=== PATIENT | male | born 1930 | race African-American/Black ===

== ENCOUNTER → 2016-10-02 | Outpatient (CLI) | payer MEDICARE ==
[2015-08-03 15:12] VITALS: BP 169/95
[~2016-10-02] MED LIST: ACET325T9 PO; ALPR1TAB2 PO; AMLO5TAB2 PO; AMOX875T PO; ASCO500T2 PO; FINA5TAB4 PO; HEPA500022 SQ; LISI-334 PO; LISI10TA2 PO; METO25TA4 PO; Megestrol Acetate PO; NAPH1POW2 PO; OXYC1TAB7 PO; Ondansetron Hcl/Pf IV; TAMS0.4C2 PO; TAMS0.4C97 PO; TRAZ50TA15 PO
[2016-10-02 14:21] LABS: CALCIUM 9.1 mg/dL (8.5-10.1); CREATININE 1.3 mg/dL (0.7-1.3); GFR 63.6; POTASSIUM 4.2 mmol/L (3.5-5.1)
== END | disposition home or self-care (01) ==
LOC: LAB 13:55
PROVIDERS: ATTEND Nurse Practitioner Occupational Health
DX: Z12.5 Encounter for screening for malignant neoplasm of prostate (principal)
CPT/HCPCS: 36415; 80048; G0103

== ENCOUNTER → 2016-10-11 | Outpatient (CLI) | payer MEDICARE ==
[2015-08-03 15:12] VITALS: BP 169/95
--- NOTE | 2016-10-11 15:15 | RAD ---
Renal ultrasound, 10/11/2016: History: Enlarged prostate The right kidney measures 9.6 cm in length while the left kidney measures 11.2 cm. There is mild bilateral renal cortical scarring, slightly worse on the right. There is a 1.9 cm cyst arising from the lower pole of the left kidney. A 1.8 cm cystic structure at the left renal hilum is probably a prominent extrarenal pelvis, although a parapelvic cyst is also a possibility. No right renal mass is seen. There is no evidence of hydronephrosis. Limited views of the urinary bladder show it to be mildly distended with a volume of 520 cc. There is a mild impression upon its base due to an enlarged prostate. The bladder is otherwise unremarkable. IMPRESSION: 1. Mild bilateral renal cortical scarring. 2. Small left renal cyst. 3. No evidence of renal obstruction. 4. Prostatic enlargement
== END | disposition home or self-care (01) ==
LOC: US 11:04
PROVIDERS: ATTEND Nurse Practitioner Occupational Health
DX: N28.1 Cyst of kidney, acquired (principal)
CPT/HCPCS: 76770

== ENCOUNTER 2017-07-08 17:19 | Emergency (ER) | payer MEDICARE ==
[2017-07-08] MEDS: oxyCODONE/APAP 5/325 1 TAB TABLET PO (18:00)
[2017-07-08] MEDS: IBUPROFEN 800 MG TABLET. PO (18:00)
== END 2017-07-08 18:50 | disposition home or self-care (01) ==
LOC: ER 17:19
DX: S42.294A Other nondisplaced fracture of upper end of right humerus, initial encounter for closed fracture (principal); I10 Essential (primary) hypertension; W00.0XXA Fall on same level due to ice and snow, initial encounter; Y93.89 Activity, other specified; Y92.89 Other specified places as the place of occurrence of the external cause; Y99.8 Other external cause status
CPT/HCPCS: 29240; 73030; 73070; 99284-25

== ENCOUNTER → 2017-08-16 | Outpatient (CLI) | payer MEDICARE ==
[2017-08-16 14:54] LABS: ANION GAP 12 (6-14); BLOOD UREA NITROGEN 19 mg/dL (8-26); CALCIUM 8.6 mg/dL (8.5-10.1); CARBON DIOXIDE 25 mmol/L (21-32); CHLORIDE 102 mmol/L (98-107); CREATININE 1.3 mg/dL (0.7-1.3); GFR 63.5; GLUCOSE 99 mg/dL (70-99); PHOSPHORUS 2.7 mg/dL (2.6-4.7); POTASSIUM 3.4 mmol/L (3.5-5.1); SODIUM 139 mmol/L (136-145)
== END | disposition home or self-care (01) ==
LOC: LAB 14:03
DX: I12.9 Hypertensive chronic kidney disease with stage 1 through stage 4 chronic kidney disease, or unspecified chronic kidney disease (principal); N18.9 Chronic kidney disease, unspecified; N17.9 Acute kidney failure, unspecified
CPT/HCPCS: 36415; 80069

== ENCOUNTER → 2019-01-26 | Outpatient (CLI) | payer MEDICARE ==
[2017-07-08 17:45] VITALS: BP 159/102
[~2019-01-26] MED LIST changes: +AMLO5TAB10 PO; -AMLO5TAB2 PO; +OXYC1TAB15 PO; +TRAZ-118 PO; -TRAZ50TA15 PO
[2019-01-26 11:04] LABS: BASO % 1 % (0-3); EOS # 0.1 x10^3/uL (0.0-0.7); EOS % 1 % (0-3); HEMATOCRIT 37.8 % (39.0-53.0); HEMOGLOBIN 12.4 g/dL (13.0-17.5); LYMPH # 0.5 x10^3/uL (1.0-4.8); LYMPH % 10 % (24-48); MEAN CORPUSCULAR HEMOGLOBIN 31 pg (25-35); MEAN CORPUSCULAR HGB CONC 33 g/dL (31-37); MEAN CORPUSCULAR VOLUME 94 fL (79-100); MONO # 0.3 x10^3/uL (0.0-1.1); MONO % 6 % (0-9); NEUT # 4.2 x10^3/uL (1.8-7.7); NEUT % 82 % (31-73); PLATELET COUNT 175 x10^3/uL (140-400); RED BLOOD COUNT 4.03 x10^6/uL (4.30-5.70); RED CELL DISTRIBUTION WIDTH 15.3 % (11.5-14.5); WHITE BLOOD COUNT 5.2 x10^3/uL (4.0-11.0)
[2019-01-26 11:13] LABS: ALBUMIN 4.1 g/dL (3.4-5.0); CALCIUM 8.8 mg/dL (8.5-10.1); CREATININE 1.5 mg/dL (0.7-1.3); GFR 53.7; MAGNESIUM 2.1 mg/dL (1.8-2.4); PHOSPHORUS 2.7 mg/dL (2.6-4.7)
[2019-01-26 22:10] LABS: CALCIUM PTH 9.4 mg/dL (8.6-10.2); CREATININE PTH 1.41 mg/dL (0.76-1.27); PHOSPHORUS PTH 2.6 mg/dL (2.5-4.5); PTH INTACT 80 pg/mL (15-65)
== END | disposition home or self-care (01) ==
LOC: LAB 10:45
PROVIDERS: ATTEND Nurse Practitioner Family
DX: I12.9 Hypertensive chronic kidney disease with stage 1 through stage 4 chronic kidney disease, or unspecified chronic kidney disease (principal); N18.2 Chronic kidney disease, stage 2 (mild); N40.0 Benign prostatic hyperplasia without lower urinary tract symptoms; E21.3 Hyperparathyroidism, unspecified; Z79.899 Other long term (current) drug therapy
CPT/HCPCS: 36415; 80069; 82306; 83735; 83970; 85025

== ENCOUNTER → 2020-01-25 | Outpatient (CLI) | payer MEDICARE ==
[2017-07-08 17:45] VITALS: BP 159/102
[~2020-01-25] MED LIST changes: -ASCO500T2 PO; +ASCO500T4 PO
[2020-01-25 12:46] LABS: BASO # 0.1 x10^3/uL (0.0-0.2); BASO % 1 % (0-3); EOS # 0.1 x10^3/uL (0.0-0.7); EOS % 2 % (0-3); HEMATOCRIT 35.5 % (39.0-53.0); HEMOGLOBIN 12.3 g/dL (13.0-17.5); LYMPH # 0.7 x10^3/uL (1.0-4.8); LYMPH % 13 % (24-48); MEAN CORPUSCULAR HEMOGLOBIN 32 pg (25-35); MEAN CORPUSCULAR HGB CONC 35 g/dL (31-37); MEAN CORPUSCULAR VOLUME 92 fL (79-100); MONO # 0.4 x10^3/uL (0.0-1.1); MONO % 7 % (0-9); NEUT # 3.9 x10^3/uL (1.8-7.7); NEUT % 77 % (31-73); PLATELET COUNT 170 x10^3/uL (140-400); RED BLOOD COUNT 3.86 x10^6/uL (4.30-5.70); RED CELL DISTRIBUTION WIDTH 15.2 % (11.5-14.5); WHITE BLOOD COUNT 5.1 x10^3/uL (4.0-11.0)
[2020-01-25 12:57] LABS: CALCIUM 8.7 mg/dL (8.5-10.1); CREATININE 1.5 mg/dL (0.7-1.3); GFR 53.6; PHOSPHORUS 2.7 mg/dL (2.6-4.7); POTASSIUM 3.9 mmol/L (3.5-5.1)
[2020-01-25 23:08] LABS: CALCIUM PTH 9.2 mg/dL (8.6-10.2); CREATININE PTH 1.33 mg/dL (0.76-1.27); PHOSPHORUS PTH 2.5 mg/dL (2.8-4.1); PTH INTACT 53 pg/mL (15-65)
== END | disposition home or self-care (01) ==
LOC: LAB 12:11
PROVIDERS: ATTEND Internal Medicine Nephrology
DX: I12.9 Hypertensive chronic kidney disease with stage 1 through stage 4 chronic kidney disease, or unspecified chronic kidney disease (principal); N18.2 Chronic kidney disease, stage 2 (mild); N40.0 Benign prostatic hyperplasia without lower urinary tract symptoms
CPT/HCPCS: 36415; 80069; 83970; 85025

== ENCOUNTER → 2021-02-27 | Outpatient (CLI) | payer MEDICARE ==
[2017-07-08 17:45] VITALS: BP 159/102
[~2021-02-27] MED LIST changes: +AMLO-186 PO; -AMLO5TAB10 PO; -LISI-334 PO; +LISI10TA16 PO; -LISI10TA2 PO; +LISI20TA18 PO
[2021-02-27 11:48] LABS: BASO # 0.1 x10^3/uL (0.0-0.2); BASO % 1 % (0-3); EOS % 1 % (0-3); HEMATOCRIT 33.9 % (39.0-53.0); HEMOGLOBIN 11.3 g/dL (13.0-17.5); LYMPH # 0.6 x10^3/uL (1.0-4.8); LYMPH % 10 % (24-48); MEAN CORPUSCULAR HEMOGLOBIN 31 pg (25-35); MEAN CORPUSCULAR HGB CONC 33 g/dL (31-37); MEAN CORPUSCULAR VOLUME 93 fL (79-100); MONO # 0.4 x10^3/uL (0.0-1.1); MONO % 7 % (0-9); NEUT # 4.4 x10^3/uL (1.8-7.7); NEUT % 81 % (31-73); PLATELET COUNT 181 x10^3/uL (140-400); RED BLOOD COUNT 3.63 x10^6/uL (4.30-5.70); RED CELL DISTRIBUTION WIDTH 15.7 % (11.5-14.5); WHITE BLOOD COUNT 5.5 x10^3/uL (4.0-11.0)
[2021-02-27 11:53] LABS: ALBUMIN 4.1 g/dL (3.4-5.0); CREATININE 1.6 mg/dL (0.7-1.3); GFR 49.6; PHOSPHORUS 3.3 mg/dL (2.6-4.7); POTASSIUM 5.2 mmol/L (3.5-5.1)
[2021-02-28 01:12] LABS: CALCIUM PTH 9.3 mg/dL (8.6-10.2); CREATININE PTH 1.56 mg/dL (0.76-1.27); PHOSPHORUS PTH 3.1 mg/dL (2.8-4.1); PTH INTACT 54 pg/mL (15-65)
== END ==
LOC: LAB 11:13
PROVIDERS: ATTEND Internal Medicine Nephrology
DX: I12.9 Hypertensive chronic kidney disease with stage 1 through stage 4 chronic kidney disease, or unspecified chronic kidney disease (principal); N18.2 Chronic kidney disease, stage 2 (mild); E21.3 Hyperparathyroidism, unspecified
CPT/HCPCS: 36415; 80069; 83970; 85025